=== PATIENT | female | born 1985 | race Caucasian/White ===

== ENCOUNTER 2016-11-26 12:11 | Emergency (ER) | payer MEDICAID ==
[~2016-11-26 12:11] MED LIST: B COMPLETE1 EACH PO; BENADRYL25 M3 PO; DICLEGIS DR 101 EACH PO; IBUPROFEN800 M1 PO; IBUPROFEN800 MG PO; NO HOME MEDICATION XX; NO HOME MEDS; PRENATAL TABLE1 EAC3 PO; PRENATAL VITAM1 EAC5 PO; PROMETHAZINE12.5 M2 PO; REGLAN10 M2 PO; ZOFRAN ODT4 MG PO
[2016-11-26 13:00] LABS: BASO % 0.3 % (0-2); EOS % 1.7 % (0-7); EOSINOPHIL ABSOLUTE COUNT 0.2 tho/cmm (0.0-0.7); HGB-HEMOGLOBIN 14.1 gm/dl (12.0-15.5); IMMATURE GRANULOCYTES ABSOLUTE 0.06 tho/cmm (0-0.03); IMMATURE GRANULOCYTES PERCENT 0.5 % (0-0.3); LYMPH % 18.7 % (20-45); LYMPH ABSOLUTE COUNT 2.1 tho/cmm (0.8-4.5); MCH (MEAN CORPUSCULAR HGB) 30.9 pg (28.0-32.0); MCHC MEAN CORPUSCULAR HGB CONC 34.4 % (32.0-36.0); MCV (MEAN CELL VOLUME) 89.7 fl (82.0-96.0); MEAN PLATELET VOLUME 10.6 cmc (9.4-12.4); MONO % 6.2 % (0-12); MONOCYTE ABSOLUTE COUNT 0.7 tho/cmm (0.0-1.2); NEUTROPHILS % 72.6 % (40-80); PLATELET COUNT 223 tho/cmm (150-450); RED BLOOD COUNT 4.57 mil/cmm (4.00-5.20); RED CELL DISTRIBUTION WIDTH 14.1 % (12.4-16.4); WHITE BLOOD COUNT 11.1 tho/cmm (4.0-10.0)
[2016-11-26 15:24] LABS: URINE BILIRUBIN NEGATIVE (NEG); URINE BLOOD LARGE (NEG); URINE GLUCOSE (UA) NEGATIVE (NEG); URINE KETONE LARGE (NEG); URINE LEUKOCYTE ESTERASE NEGATIVE (NEG); URINE NITRITE NEGATIVE (NEG); URINE PROTEIN SMALL (NEG)
[2016-11-26 15:29] LABS: URINE APPEARANCE CLEAR; URINE COLOR YELLOW
[2016-11-26 16:03] LABS: URINE RBC 0-3 /[HPF] (0-5); URINE WBC 0-1 /[HPF] (0-5)
[2017-04-24] MEDS ORDERED: ZOFRAN4 M2 PO (12:12)
[2017-04-24] MEDS ORDERED: DICLEGIS DR 101 EACH PO (12:13)
[2017-04-24] MEDS ORDERED: PROMETHAZINE12.5 M2 PO (12:14)
[2017-04-26] MEDS ORDERED: IBUPROFEN800 M1 PO (10:57)
[2017-04-27] MEDS ORDERED: PRENATAL MULTI1 EAC5 PO (10:46)
== END 2016-11-26 16:06 ==
LOC: EDMED 12:11
PROVIDERS: Emergency Medicine
DX: O20.0 Threatened abortion (principal); Z3A.18 18 weeks gestation of pregnancy